=== PATIENT | male | born 1990 | race Caucasian/White ===

== ENCOUNTER 2019-01-10 18:12 | Emergency (ER) | payer BC ==
[2019-01-10] MEDS ORDERED: NS 1,000 ML IV ONE (21:15)
[2019-01-10 21:17] LABS: BASO % 0.3 % (0.0-1.0); HEMATOCRIT 53.3 % (42.0-52.0); HEMOGLOBIN 17.9 g/dl (13.5-17.5); LYMPH # 0.7 10^3/uL (1.5-6.5); LYMPH % 4.6 % (24.0-44.0); MEAN CORPUSCULAR HEMOGLOBIN 29.4 pg (27.0-33.0); MEAN CORPUSCULAR HGB CONC 33.6 g/dl (32.0-36.5); MEAN CORPUSCULAR VOLUME 87.5 fl (80.0-96.0); MONO # 0.7 10^3/uL (0.0-0.8); MONO % 4.3 % (0.0-5.0); NEUTROPHILS # 13.8 10^3/uL (1.8-7.7); NEUTROPHILS % 90.5 % (36.0-66.0); PLATELET COUNT, AUTOMATED 240 10^3/uL (150-450); RED BLOOD COUNT 6.09 10^6/uL (4.30-6.10); WHITE BLOOD COUNT 15.2 10^3/uL (4.0-10.0)
--- NOTE | 2019-01-10 21:34 | REP ---
Clinical: The near-syncopal episode with blurred vision . Comparison: none. Findings: The ventricles, sulci, and cisterns are normal in position and appearance. Saavedra-white differentiation is maintained. No acute intracranial hemorrhage, mass/mass effect, pathology or trauma/injury. No evidence for acute infarction. No extra-axial fluid collection. Calvarium is intact. Paranasal sinuses and mastoid air cells are clear. Impression: Normal noncontrast head CT. No evidence for acute intracranial pathology or trauma/injury. Electronically Signed by Jono Tyler MD 01/10/2019 09:24 P
[2019-01-10 21:36] LABS: ALBUMIN 4.5 GM/DL (3.2-5.2); ALT/SGPT 86 U/L (12-78); AMYLASE 52 U/L (25-115); BILIRUBIN,TOTAL 0.5 MG/DL (0.2-1.0); BLOOD UREA NITROGEN 14 MG/DL (7-18); CALCIUM LEVEL 9.1 MG/DL (8.5-10.1); CARBON DIOXIDE LEVEL 31 MEQ/L (21-32); CHLORIDE LEVEL 104 MEQ/L (98-107); CK-MB VALUE MASS < 1.0 NG/ML (<3.6); CPK CREATINE PHOSPHOKINASE 67 U/L (39-308); CREATININE FOR GFR 1.09 MG/DL (0.70-1.30); GLOMERULAR FILTRATION RATE > 60.0 (>60); GLUCOSE, FASTING 95 MG/DL (70-100); LIPASE 75 U/L (73-393); MB/CK RELATIVE INDEX 1.49 (< OR =4); SODIUM LEVEL 140 MEQ/L (136-145); TOTAL PROTEIN 7.7 GM/DL (6.4-8.2); TROPONIN I < 0.02 NG/ML (< 0.10)
--- NOTE | 2019-01-10 22:46 | REP ---
Clinical: Leukocytosis . Comparison: None . Technique: PA and lateral. Findings: The mediastinum and cardiac silhouette are normal. The lung thomas are clear and without acute consolidation, effusion, or pneumothorax. The skeletal structures are intact and normal. Impression: 1. No acute cardiopulmonary process. Electronically Signed by Jono Tyler MD 01/10/2019 10:38 P
[2019-01-10 23:43] VITALS: BP 118/71
--- NOTE | 2019-01-11 20:12 | ECGEPIP ---
Stationary ECG Study [facility] - ED Test Date: 2019-01-10 Pat Name: RADHA SILVA Department: Room: - Gender: M Coordinator Of Placement: : 1990 Requested By: Jet Gore Order Number: [id number] Reading MD: Rafael Choi Measurements Intervals [place] Rate: 94 P: 32 CT: 148 QRS: -18 QRSD: 93 T: 29 QT: 336 QTc: 420 Interpretive Statements SINUS RHYTHM Comparison tracing not on file Electronically Signed On 01-11-2019 20:12:06 EDT by Rafael Choi
== END 2019-01-10 23:44 | disposition home or self-care (01) ==
LOC: EDBD 18:12 → M ED 18:12
DX: E86.0 Dehydration (principal); B34.9 Viral infection, unspecified

== ENCOUNTER → 2025-02-14 | Outpatient (CLI) | payer BC ==
[2025-02-14 13:52] LABS: ALBUMIN 4.3 G/DL (3.2-5.2); ALKALINE PHOSPHATASE 80 U/L (40-129); ALT/SGPT 60 U/L (7.0-40); AST/SGOT 25 U/L (<34); BILIRUBIN,TOTAL 0.8 MG/DL (0.3-1.2); BLOOD UREA NITROGEN 15 MG/DL (9-23); CALCIUM LEVEL 9.6 MG/DL (8.5-10.1); CARBON DIOXIDE LEVEL 29 MMOL/L (20-31); CHLORIDE LEVEL 103 MMOL/L (98-107); CHOLESTEROL LEVEL 177 MG/DL (<200); CHOLESTEROL RISK RATIO 4.64 (<5); CREATININE FOR GFR 1.03 MG/DL (0.70-1.30); GLOMERULAR FILTRATION RATE > 90.0 (>60); GLUCOSE, FASTING 87 MG/DL (60-100); HDL CHOLESTEROL 38.1 MG/DL (>40); LDL CHOLESTEROL 123.5 MG/DL (<100); NON-HDL-C 138.9 MG/DL; POTASSIUM SERUM 4.4 MMOL/L (3.5-5.1); SODIUM LEVEL 141 MMOL/L (136-145); TOTAL PROTEIN 7.2 G/DL (5.7-8.2); TRIGLYCERIDES LEVEL 77 MG/DL (<150)
[2025-02-14 13:58] LABS: BASO % 0.7 % (0.0-1.0); HEMATOCRIT 49.5 % (42.0-52.0); HEMOGLOBIN 16.1 g/dl (13.5-17.5); LYMPH # 1.7 10^3/uL (1.5-5.0); LYMPH % 28.2 % (24.0-44.0); MEAN CORPUSCULAR HEMOGLOBIN 28.6 pg (27.0-33.0); MEAN CORPUSCULAR HGB CONC 32.5 g/dl (32.0-36.5); MEAN CORPUSCULAR VOLUME 87.9 fl (80.0-96.0); MONO # 0.7 10^3/uL (0.0-0.8); MONO % 11.8 % (2.0-8.0); NEUTROPHILS # 3.6 10^3/uL (1.5-8.5); NEUTROPHILS % 59.1 % (36.0-66.0); PLATELET COUNT, AUTOMATED 238 10^3/uL (150-450); RED BLOOD COUNT 5.63 10^6/uL (4.30-6.10)
== END ==
LOC: M WUC 08:10
PROVIDERS: ATTEND Family Medicine
DX: Z00.00 Encounter for general adult medical examination without abnormal findings (principal)